=== PATIENT | male | born 1985 | race Caucasian/White ===

== ENCOUNTER → 2020-05-22 | Outpatient (CLI) | payer OTHER ==
[~2020-05-22] MED LIST: CYCLOBENZAPRINE5 MG PO; KENALOG0.5% TP; MEDROL DOSEPAK4 MG PO; PREDNICOT20 MG PO; TRAMADOL HCL50 MG PO; ULTRAM50 MG PO
== END | disposition home or self-care (01) ==
LOC: COVID19 10:04
PROVIDERS: ATTEND Internal Medicine
DX: U07.1 COVID-19 (principal)

== ENCOUNTER 2021-07-23 12:10 | Emergency (ER) | payer OTHER ==
[2021-07-23] MEDS ORDERED: IBUPROFEN600 MG PO (14:50)
[2021-07-23] MEDS ORDERED: METHOCARBAMOL500 M1 PO (14:50)
== END 2021-07-23 14:55 | disposition home or self-care (01) ==
LOC: ED 12:10
DX: S29.012A Strain of muscle and tendon of back wall of thorax, initial encounter (principal); S39.012A Strain of muscle, fascia and tendon of lower back, initial encounter; V43.52XA Car driver injured in collision with other type car in traffic accident, initial encounter; Y93.89 Activity, other specified; Y92.89 Other specified places as the place of occurrence of the external cause; Y99.8 Other external cause status

== ENCOUNTER 2025-01-05 19:16 | Emergency (ER) | payer OTHER, BC ==
[~2025-01-05] VITALS: Ht 180.3 cm; Wt 95.3 kg
[~2025-01-05 19:16] MED LIST changes: +IBUPROFEN600 MG PO; +METHOCARBAMOL500 M1 PO
[2025-01-05] MEDS ORDERED: diphenhydrAMINE hydrochloride 50 MG/ML VIAL IV ONE (19:50)
[2025-01-05] MEDS ORDERED: SODIUM CHLORIDE 0.9% 1,000 ML IV ONE ×2 (19:50→21:05)
[2025-01-05] MEDS ORDERED: FAMOTIDINE 50 ML IV ONE (19:50)
[2025-01-05 20:03] LABS: BASO # 0.1 10*3/uL (0.0-0.1); BASO % 0.3 % (0.0-1.0); EOS # 0.1 10*3/uL (0.0-0.4); EOS % 0.7 % (1.0-4.0); MEAN CELL VOLUME 85.5 fl (80.0-94.0); MEAN CORPUSCULAR HGB 29.2 pg (27.0-31.0); MEAN PLATELET VOLUME 9.0 fl (9.6-12.3); MONO # 0.8 10*3/uL (0.1-1.0); MONO % 5.5 % (3.0-9.0); NEUT # 11.7 10*3/uL (2.3-7.9); NEUT % 78.3 % (47.0-73.0); NUCLEATED RED BLOOD CELL 0.0 % (0.0-0.0); NUCLEATED RED BLOOD CELL 0.0 10*3/uL (0.0-0.0); PLATELET COUNT AUTOMATED 267 10*3/uL (130-400); RED CELL DISTRI WIDTH 12.3 % (0-14.5)
[2025-01-05 20:21] LABS: BUN 23.0 mg/dl (9-23)
[2025-01-05 21:24] LABS: BILIRUBIN Negative (Negative); BLOOD Negative (Negative); CLARITY Clear (Clear); COLOR Yellow (Yellow); KETONE Trace (Negative); LEUKO ESTERASE Negative (Negative); NITRITE Negative (Negative); PH 5.0 (4.5-8.0); SPECIFIC GRAVITY 1.025 (1.001-1.030); UROBILINOGEN 1.0 E.U./dl (0.0-1.0)
[2025-01-05 21:31] LABS: BACTERIA TRACE; MUCOUS 1+; WBC 0-2 wbc/hpf (0-5)
[2025-01-05] MEDS ORDERED: PREDNISONE20 M1 PO (22:47)
== END 2025-01-05 23:00 | disposition home or self-care (01) ==
LOC: ED 19:16
PROVIDERS: Nurse Practitioner Family
DX: L25.9 Unspecified contact dermatitis, unspecified cause (principal); N17.9 Acute kidney failure, unspecified; E86.0 Dehydration; Z79.899 Other long term (current) drug therapy; Z88.8 Allergy status to other drugs, medicaments and biological substances